=== PATIENT | male | born 1995 | race Caucasian/White ===

== ENCOUNTER 2020-01-06 11:44 | Emergency (ER) | payer MEDICAID ==
[~2020-01-06] VITALS: Ht 162.6 cm; Wt 54.0 kg
[2020-01-06 11:53] VITALS: BP 110/63
[2020-01-06] MEDS ORDERED: ACETAMINOPHEN WITH CODEINE 300/30MG TABLET PO ONE (12:15)
== END 2020-01-06 13:58 | disposition home or self-care (01) ==
LOC: ER 11:44
DX: S90.32XA Contusion of left foot, initial encounter (principal); W18.39XA Other fall on same level, initial encounter; Y93.51 Activity, roller skating (inline) and skateboarding; Y92.9 Unspecified place or not applicable
CPT/HCPCS: 73620; 99283

== ENCOUNTER 2020-01-07 19:01 | Emergency (ER) | payer MEDICAID ==
[~2020-01-07] VITALS: Ht 162.6 cm; Wt 54.0 kg
[2020-01-07 19:07] VITALS: BP 126/66
[2020-01-07] MEDS ORDERED: BACITRACIN ZINC OINT UDPKT TOP ONE (20:30)
== END 2020-01-07 20:55 | disposition home or self-care (01) ==
LOC: ER 19:01
DX: S50.01XA Contusion of right elbow, initial encounter (principal); L03.113 Cellulitis of right upper limb; W03.XXXA Other fall on same level due to collision with another person, initial encounter; Y93.51 Activity, roller skating (inline) and skateboarding; Y92.9 Unspecified place or not applicable
CPT/HCPCS: 99283